=== PATIENT | male | born 1960 | race Caucasian/White ===

== ENCOUNTER → 2018-08-03 | Outpatient (CLI) | payer OTHER ==
--- NOTE | 2018-08-04 10:57 | PCVCIMAG ---
APPROVED REPORT Study performed: 08/03/2018 16:35:26 Exam: Stress Echocardiogram Indication: CAD , Hyperlipidemia Patient Location: Echo lab Stress Nurse: Sissy Aguila RN Room #: 1 Status: routine Ht: 6 ft 1 in HR: 65 bpm BP: 136/74 mmHg Rhythm: NSR Medical History Medical History: CAD non obstructive-cor Ca+ 710,, Hyperlipidemia Cardiac Risk Factors: FHX of CAD, Hyperlipidemia Previous Cardiac Procedures: none Pretest Chest Pain Characteristics: No chest pain Exercise History: Physically active Procedure The patient underwent an Exercise Stress Test using the Lynn Protocol. Blood pressure, heart rate, and EKG were monitored. An Echocardiogram was performed by geoscience technician in four stages in quad fashion. At peak stress, four selected images were obtained and placed side by side with resting images for comparison. Stress Test Details Stress Test: Exercise stress testing was performed using a Lynn protocol. HR Resting HR: 65 bpmMax Heart Rate (APMHR): 164 bpm Max HR Achieved: 160 bpmTarget HR (85% APMHR): 139 bpm % of APMHR: 97 Recovery HR: 81 bpm HR response to stress: Normal HR response to stress BP Resting BP: 136/74 mmHg Max BP: 150/66 mmHg Recovery BP: 140/60 mmHg ECG Resting ECG: Sinus Rhythm Stress ECG: Sinus Rhythm, NSSTT changes ST Change: Upsloping ST depression Arrhythmia: Rare PVCs Recovery ECG: Sinus Rhythm Recovery ST Change: Non-ischemic Recovery Arrhythmia: Rare PAC,PVC Clinical Reason for Termination: Maximal effort Stress Symptoms: fatigue Exercise duration: 16 min 00 sec Highest Stage Achieved: Stage 6: 5.5 mph at 20% grade. Exercise capacity: 20.6 METs Overall Exercise Capacity for Age: Excellent Scale: Active Angina Score: None No complications. Stress ECG Conclusion The patient exercised according to the LYNN protocol for16:00 mins; achieving a work level of 20.6 METS. The resting heart rate of 65 bpm romeo to a maximum heart rate of 160 bpm. This value represent 97% of the maximal, age-predicted heart rate. The resting blood pressure of 136/74 mmHg, romeo to a maximum blood pressure of 160/66 mmHg. The exercise test was stopped due to fatigue. Pre-Stress Echo The resting Echocardiogram showed normal left ventricular contractility with an estimated Ejection Fraction of about 55-60%. Normal wall motion in all segments on baseline images. Post-Stress Echo The stress Echocardiogram showed normal left ventricular contractility with an estimated Ejection Fraction of about 65-70%. Normal augmentation of wall motion in all segments on post stress images. Clinical No clinical or ECG evidence for ischemia. Conclusion Clinical Response: Non-ischemic Exercise Capacity: Superior Stress ECG Response: Non-ischemic Stress Echo Images: Non-ischemic No clinical, EKG or echocardiographic evidence for ischemia. No echocardiographic evidence for exercise induced ischemia. Normal stress echocardiogram with maximal exercise stress. <Conclusion> No clinical, EKG or echocardiographic evidence for ischemia. No echocardiographic evidence for exercise induced ischemia. Normal stress echocardiogram with maximal exercise stress.
== END | disposition home or self-care (01) ==
LOC: PCVCIMAG 16:31
PROVIDERS: ATTEND Internal Medicine Cardiovascular Disease
DX: I25.10 Atherosclerotic heart disease of native coronary artery without angina pectoris (principal)
CPT/HCPCS: 93325; 93351